=== PATIENT | female | born 1950 | race Hispanic/Latino ===

== ENCOUNTER 2016-10-07 10:22 | Outpatient (CLI) | payer MEDICARE ==
--- NOTE | 2016-10-07 11:13 | XRay Report ---
CHEST 2 VIEWS INDICATION: Preop evaluation. COMPARISON: None similar at this institution. FINDINGS: PA and lateral chest radiographs demonstrate normal cardiomediastinal silhouette. No effusions or CHF. Mild apical scarring/pleural thickening, more so on the right. Mild peripheral right upper to mid lung scarring as well. Lower cervical fusion hardware. Mild lower thoracic levoscoliosis. Demineralized bones. CONCLUSION: No acute chest process with few incidental findings, as above. Thank you for the opportunity to participate in this patient's care.
== END 2016-10-07 10:23 | disposition home or self-care (01) ==
LOC: SPVIMAG 10:22
PROVIDERS: ATTEND Internal Medicine
DX: Z01.818 Encounter for other preprocedural examination (principal); M43.22 Fusion of spine, cervical region; M41.84 Other forms of scoliosis, thoracic region
CPT/HCPCS: 71020